=== PATIENT | male | born 1945 | race Caucasian/White ===

== ENCOUNTER 2018-05-21 09:08 | Day surgery (SDC) | payer MEDICARE ==
[~2018-05-21] VITALS: Ht 172.7 cm; Wt 94.9 kg
[~2018-05-21 09:08] MED LIST: Flomax0.4 MG PO; LORA.5 PO; OXYACE5T PO; PARO20 PO; PROM25 PO; Percocet 5-3251 EACH PO; TAMS.4ER PO; TRAM50 PO; Zofran Odt8 MG SL
== END 2018-05-21 12:26 | disposition home or self-care (01) ==
LOC: ORSCSDS 09:08
PROVIDERS: Internal Medicine Gastroenterology
PROC: 0DBH8ZX Excision of Cecum, Via Natural or Artificial Opening Endoscopic, Diagnostic (ICD-10-PCS; principal; 2018-05-21 10:30)
PROC: 0DBM8ZX Excision of Descending Colon, Via Natural or Artificial Opening Endoscopic, Diagnostic (ICD-10-PCS; principal; 2018-05-21 10:30)
PROC: 0DBN8ZX Excision of Sigmoid Colon, Via Natural or Artificial Opening Endoscopic, Diagnostic (ICD-10-PCS; principal; 2018-05-21 10:30)
PROC: 0DBK8ZX Excision of Ascending Colon, Via Natural or Artificial Opening Endoscopic, Diagnostic (ICD-10-PCS; principal; 2018-05-21 10:30)
DX: Z12.11 Encounter for screening for malignant neoplasm of colon (principal); D12.5 Benign neoplasm of sigmoid colon; D12.2 Benign neoplasm of ascending colon; D12.0 Benign neoplasm of cecum; D12.4 Benign neoplasm of descending colon; K57.30 Diverticulosis of large intestine without perforation or abscess without bleeding
CPT/HCPCS: 88305; J1980; J7120

== ENCOUNTER 2019-07-22 09:56 | Day surgery (SDC) | payer MEDICARE ==
[~2019-07-22] VITALS: Ht 172.7 cm; Wt 91.8 kg
[2019-07-22] MEDS ORDERED: PANT40 PO (10:29)
[2019-07-22] MEDS ORDERED: SUCR1 PO (10:29)
[2019-07-25 13:48] LABS: Performing Lab SYMBIODX; Test Name TISSUE BIOPSY
[2019-08-02 10:17] LABS: Result SEE PATHOTH RESULTS
== END 2019-07-22 12:03 | disposition home or self-care (01) ==
LOC: ORSCSDS 09:56
PROVIDERS: Internal Medicine Gastroenterology
PROC: 0DB68ZX Excision of Stomach, Via Natural or Artificial Opening Endoscopic, Diagnostic (ICD-10-PCS; principal; 2019-07-22 11:15)
PROC: 0DB58ZX Excision of Esophagus, Via Natural or Artificial Opening Endoscopic, Diagnostic (ICD-10-PCS; principal; 2019-07-22 11:15)
DX: R10.13 Epigastric pain (principal); C83.30 Diffuse large B-cell lymphoma, unspecified site; Z87.891 Personal history of nicotine dependence
CPT/HCPCS: 87081; 88305; 88341; 88342; 88365; J2704; J7120

== ENCOUNTER 2019-08-20 07:18 | Day surgery (SDC) | payer MEDICARE ==
[~2019-08-20] VITALS: Ht 172.7 cm; Wt 92.3 kg
[~2019-08-20 07:18] MED LIST changes: +PANT40 PO; +SUCR1 PO
--- NOTE | 2019-08-20 08:41 | NUR ---
Ambulatory in Day Surgery History, Chart, Medications and Allergies reviewed before start of procedure.Patient confirms NPO status and agrees with scheduled surgery. Patient reports completing Chlorhexadine shower X2 prior to admission to hospital.Surgical site prepped with 2% Chlorhexidine cloth wipe. Lungs clear T/O to Auscultation. Patient States Post-Procedure ride home has been arranged. GLASSES AND DENTURES REMOVED AND TAKEN TO PACU.
--- NOTE | 2019-08-20 10:20 | NUR ---
08/20/19 1020 Ritesh Carrillo all entries by [email or web address] were acutally entered by [email or web address].
--- NOTE | 2019-08-20 11:33 | NUR ---
CXR DONE. RAD TO CALL [facility] WITH RESULTS. PT PLAN TO GO TO CANCER CENTER AFTER RECOVERY.
--- NOTE | 2019-08-20 12:17 | NUR ---
Patient up to Ambulate independently. Gait steady. Discharge instructions reviewed with patient. Patient verbalizes understanding. Copy given to patient to take home. Patient States Post-Procedure ride to cancer center will be provided by his . Discharged via wheelchair to private car for ride home. all belonings returned to patient.
== END 2019-08-20 22:47 | disposition home or self-care (01) ==
LOC: ORSCMMR 07:18 → ORD 09:00 → ORSCMMR 22:47
PROVIDERS: Surgery
PROC: B543ZZA Ultrasonography of Right Jugular Veins, Guidance (ICD-10-PCS; principal; 2019-08-20 09:00)
PROC: 05HM33Z Insertion of Infusion Device into Right Internal Jugular Vein, Percutaneous Approach (ICD-10-PCS; principal; 2019-08-20 09:00)
DX: C85.10 Unspecified B-cell lymphoma, unspecified site (principal); Z87.891 Personal history of nicotine dependence
CPT/HCPCS: 77001; 93005; 93010; A9270-GY; C1788; J0690; J1100; J1642; J2250; J2370; J2405; J2704; J3010; J7120

== ENCOUNTER 2021-07-19 10:30 | Inpatient (IN) | payer MEDICARE ==
[~2021-07-19] VITALS: Ht 172.7 cm; Wt 96.9 kg
[2021-07-19] MEDS ORDERED: PRED20 PO (10:47)
[2021-07-19 11:17] LABS: BASOPHILS ABSOLUTE AUTO 0.01 K/mm3 (0.00-0.23); BASOPHILS PERCENT AUTO 0 % (0-2); EOSINOPHILS PERCENT AUTO 0 % (0-6); Hematocrit 46.1 % (37.0-53.0); Hemoglobin 16.1 g/dL (13.5-17.5); IMMATURE GRAN ABSOLUTE AUTO 0.03 K/mm3 (0.00-0.10); IMMATURE GRAN PERCENT AUTO 0 % (0-1); LYMPHOCYTES ABSOLUTE AUTO 1.52 K/mm3 (0.84-5.20); LYMPHOCYTES PERCENT AUTO 20 % (21-46); MONOCYTES ABSOLUTE AUTO 0.65 K/mm3 (0.16-1.47); MONOCYTES PERCENT AUTO 9 % (4-13); Mean Corpuscular HGB 32.8 pg (26.0-34.0); Mean Corpuscular HGB Conc 34.9 g/dL (31.5-36.5); Mean Corpuscular Volume 94 fL (80-100); Mean Platelet Volume 9.5 fL (9.1-12.4); NEUTROPHILS ABSOLUTE AUTO 5.28 K/mm3 (1.96-9.15); NEUTROPHILS PERCENT AUTO 71 % (41-73); Platelet Count 161 K/mm3 (150-400); RDW Coefficient Variation 13.2 % (11.7-14.2); RDW Standard Deviation 46.1 fL (35.1-46.3); Red Blood Cell Count 4.91 M/mm3 (4.30-5.90); White Blood Cell Count 7.49 K/mm3 (4.00-11.30)
[2021-07-19 11:35] LABS: Albumin/Globulin Ratio 0.7 (0.8-1.8); Bilirubin, Total 0.9 mg/dL (0.1-1.0); Bun/Creatinine Ratio 14.1 (12.0-20.0); Calcium, Blood 8.2 mg/dL (8.5-10.1); Creatinine, Blood 1.42 mg/dL (0.60-1.20); Globulin, Blood 4.2 g/dL (2.2-4.0); Total Protein, Blood 7.2 g/dL (6.4-8.2)
--- NOTE | 2021-07-20 04:07 | NUR ---
SHIFT SUMMARY A/OX4, PLEASANT AND COOPERATIVE WITH CARE. SUN'AQ. DENIES PAIN. CURRENTLY ON 4L VIA NC. VSS, NO ACUTE CHANGES AT THIS TIME. BED IN LOWEST POSITION WITH CALL LIGHT IN REACH. WILL CONTINUE TO MONITOR AND REPORT TO ONCOMING RN.
[2021-07-20 04:59] LABS: BASOPHILS PERCENT AUTO 0 % (0-2); EOSINOPHILS PERCENT AUTO 0 % (0-6); Hematocrit 40.5 % (37.0-53.0); IMMATURE GRAN ABSOLUTE AUTO 0.02 K/mm3 (0.00-0.10); IMMATURE GRAN PERCENT AUTO 1 % (0-1); LYMPHOCYTES PERCENT AUTO 20 % (21-46); MONOCYTES ABSOLUTE AUTO 0.41 K/mm3 (0.16-1.47); MONOCYTES PERCENT AUTO 10 % (4-13); Mean Corpuscular HGB 32.4 pg (26.0-34.0); Mean Corpuscular HGB Conc 34.6 g/dL (31.5-36.5); Mean Corpuscular Volume 94 fL (80-100); Mean Platelet Volume 9.6 fL (9.1-12.4); NEUTROPHILS ABSOLUTE AUTO 2.72 K/mm3 (1.96-9.15); NEUTROPHILS PERCENT AUTO 69 % (41-73); Platelet Count 143 K/mm3 (150-400); RDW Coefficient Variation 13.1 % (11.7-14.2); Red Blood Cell Count 4.32 M/mm3 (4.30-5.90); White Blood Cell Count 3.95 K/mm3 (4.00-11.30)
[2021-07-20 05:19] LABS: Anion Gap 5 mmol/L (6-16); Blood Urea Nitrogen 21 mg/dL (8-24); Bun/Creatinine Ratio 21.2 (12.0-20.0); CO2, Blood 24 mmol/L (21-32); Calcium, Blood 7.9 mg/dL (8.5-10.1); Chloride, Blood 112 mmol/L (98-108); Creatinine, Blood 0.99 mg/dL (0.60-1.20); Glomerular Filtration Rate >60 (60-); Glucose, Blood 182 mg/dL (70-99); Magnesium, Blood 1.9 mg/dL (1.6-2.4); Potassium, Blood 4.1 mmol/L (3.5-5.5); Sodium, Blood 141 mmol/L (136-145)
--- NOTE | 2021-07-20 17:48 | NUR ---
SHIFT SUMMARY PATIENT ALERT AND ORIENTED X4. PLEASANT AND COOPERATIVE WITH CARE. PATIENT IS ON CONTINUOUS POTASSIUM RUNNING AT 125ML/HR. PATIENT DENIES PAIN, NAUSEA, VOMITTING. PATIENT HAS BEEN HAVING DIARREA EPISODES DURING SHIFT. CALLED DR PIEROSN AND HAD A CDIFF SAMPLE SENT TO LAB/ AWAITING RESULTS. DR PIERSON PRESCRIBED MEDICATION FOR DIARREA. PATIENT IS CURRENTLY SATTING AT 4 LITERS NASAL CANNULA. VITAL SIGNS REVIEWED. NO ACUTE CHANGES DURING SHIFT. BED IS IN LOWEST AND LOCKED POSITION. CALL LIGHT IN REACH. WILL CONTINUE TO MONITOR UNTIL END OF SHIFT.
[2021-07-20 18:22] LABS: Adenovirus F 40/41 Not Detected (NOT DETECT); Astrovirus Not Detected (NOT DETECT); Campylobacter Sp Not Detected (NOT DETECT); Cryptosporidium Not Detected (NOT DETECT); Cyclospora Cayetanensis Not Detected (NOT DETECT); E. Coli O157 Not Detected (NOT DETECT); Entamoeba Histolytica Not Detected (NOT DETECT); Enteroaggregative E. coli-EAEC Not Detected (NOT DETECT); Enteropathogenic E. coli-EPEC Not Detected (NOT DETECT); Enterotoxigenic E. coli-ETEC Not Detected (NOT DETECT); Giardia Lamblia Not Detected (NOT DETECT); Norovirus GI/GII Not Detected (NOT DETECT); Plesiomonas Shigelloides Not Detected (NOT DETECT); Rotavirus A Not Detected (NOT DETECT); Salmonella Sp Not Detected (NOT DETECT); Sapovirus Not Detected (NOT DETECT); Shiga Toxin-prod E. coli-STEC Not Detected (NOT DETECT); Shigella/Enteroin E. coli-EIEC Not Detected (NOT DETECT); Vibrio Cholerae Not Detected (NOT DETECT); Vibrio Sp Not Detected (NOT DETECT); Yersinia Enterocolitica Not Detected (NOT DETECT)
--- NOTE | 2021-07-21 08:35 | NUR ---
SHIFT SUMMARY: AOX3, 1 ASSIST TO BSC. LS DIMINISHED T/O. VERY MOIST COUGH PRODUCTIVE WITH THICK SPUTUM, INCREASED O2 TO 6 LITERS DUE TO SATS BEING IN THE 88-89%. LUNG SOUNDS DIMINISHED T/O. NO PAIN NOTED. VS WNL, AFEBRILE. CDIFF NEGATIVE. IVF CONTINUE TO INFUSE WITH NO PROBLEMS. CALL LIGHT REMAINS IN REACH.
--- NOTE | 2021-07-21 19:28 | NUR ---
PT O2 NEEDS INCREASED THIS SHIFT TO 15L WITH OXEMIZER. NO C/O SOB OR CHEST PAIN. REMAINS ALERT AND ORIENTED X4. WARM BLANKETS PROVIDED FOR SHIVERS. STAFF WILL CONTINUE TO MONITOR.
--- NOTE | 2021-07-21 20:48 | NUR ---
ASSUMED CARE. ANXIOUS, FORGETFUL WITH STARTING OF CONFUSION. SATS AVERAGING 85-90% ON AIRVO 65L 95%02. STATING HE HAS TO "PEE" EVEN THOUGH HE HAS A CATHETER THAT IS PATENT WITH DARK YELLOW URINE. CONTINUES TO SAY THAT HES NEVER HAD ONE. THERES NO TUGGING OR PULLING NOTED. SHOWED HIM THE CATHETER TUBE WITH URINE IN IT. SPOKE OF "MESSING HIS PANTS", APPEARED VERY UPSET ABOUT THIS. CLEANED HIM UP A COUPLE OF TIMES DUE TO HIM COUGHING AND HAVING DIARRHEA. REPOSITIONED ON SIDE SATS STILL DROPPING TO LOW 80'S, GAVE HIM PRN LOMOTIL TO SLOW DOWN BM'S. HAD TO TALK HIM INTO SLOWING HIS RESPIRATIONS THAT ARE NOW 40'S. WOULD GET HIM TO CALM DOWN FOR ONLY SECONDS AT A TIME. WILL CALL MD FOR CHANGE IN ATIVAN ORDER AND COUGH MEDICATIONS.
--- NOTE | 2021-07-22 06:48 | NUR ---
SHIFT SUMMARY: LS TIGHT, DIMINISHED. TACHYPNEA AND DESATS WITH SLIGHT EXERTION. TAKES FULL 1-2 MINUTES RECCOVERY. THIS AM TOOK LONGER TO RECOVER, HAD TO PLACE NON-REBRETHER AND OXYMIZER ON AT SAME TIME RUNNING 30L TO GET HIM TO RECOVER. CURRENTLY ON 15L NON-REBREATHER HOLDING SATS AT 88-90%. COUOGH IS VERY MOIST. IVF INFUSING WELL, COULD BENIFIT FROM HAVING THEM DC'D. SLEPT ON RIGHT SIDE ALL NIGHT. STILL HAING LOOSE STOOLS. AT RISK FOR PLACEMENT ON AIRVO TODAY DO TO DECOMPENSATION. CALLS APPROPRIATLY.
--- NOTE | 2021-07-22 19:14 | NUR ---
SUMMARY- PT A/O X4. GEN WEAKNESS. OXYGEN DEMAND INCREASED THROUGH THE SHIFT FROM NRM AT 15L TO NRM WITH OXIMIZER 15 TO AIRVO MAXXED AT 60L/94%, SATS TOGGLE BETWEEN 82-91%, DECREASE WITH ANY ACTIVITY. EARLIER TODAY WAS ABLE TO GET OOB TO COMMODE X3 FOR LOOSE BM. USED URINAL AT THE SIDE BUT PT WOULD DECOMPONSATE WITH ACTIVITY SO BEGAN TO USE URINAL IN BED. EVENTUALLY CALLED DR PIERSON 1800 TOLD PT'S SATS HAVE BEEN STEADY 83-85%, RR36 RELATED TO ANXIETY. ORDER FOR HERNÁNDEZ PLACED AND ATIVAN FOR ANXIETY, MEDICATED WITH PARTIAL RELEIF OF ANXIETY. PT ASSISTED TO SIDE LYING AT TIMES BUT REFUSES PRONE. TOLERATED BREAKFAST AND LUNCH AND REFUSED DINNER. REPORT TO ANTOINE MORGAN.
--- NOTE | 2021-07-22 20:48 | NUR ---
ASSUMED CARE. ANXIOUS, FORGETFUL WITH STARTING OF CONFUSION. SATS AVERAGING 85-90% ON AIRVO 65L 95% O2. STATING HE HAS TO "PEE" EVEN THOUGH HE HAS A CATHETER THAT IS PATENT WITH DARK YELLOW URINE. CONTINUES TO SAY THAT HES NEVER HAD ONE. THERES NO TUGGING OR PULLING NOTED. SHOWED HIM THE CATHETER TUBE WITH URINE IN IT. SPOKE OF "MESSING HIS PANTS", APPEARED VERY UPSET ABOUT THIS. CLEANSED HIM UP A COUPLE OF TIMES DUE TO HIM COUGHING AND HAVING DIARRHEA. REPOSITIONED ON SIDE SATS STILL DROPPING TO LOW 80'S, GAVE HIM PRN LOMOTIL TO SLOW DOWN BM'S. HAD TO TALK HIM INTO SLOWING HIS RESPIRATIONS THAT ARE NOW 40'S. WOULD GET HIM TO CALM DOWN FOR ONLY SECONDS AT A TIME. WILL CALL MD FOR CHANGE IN ATIVAN ORDER AND COUGH MEDICATIONS.
--- NOTE | 2021-07-22 21:32 | NUR ---
CONTINUES TO DESAT, WILL NOT HOLD ABOVE 86%, AIRVO MAX. GOT ORDER FROM DR. NEELY FOR ATIVAN ANDD COUGH SYRUP. BOTH ADMINISTERED. REPOSITIONED BACK ON SIDE. CURRENTLY HOLDING T 88-90%.
--- NOTE | 2021-07-22 23:41 | NUR ---
INCREASE IN AGGITATION AND CONFUSION. CONTINUES TO DESAT TO LOW 80'S AT TIMES 70'S. VEERY RESTLESS. CONTINUES TO STATE HE HAS TO "PEE" DESPITE CATHETER. NOTED CATHETER WAS LEAKING. REMOVED CATHETER. HE CALMED DOWN FOR SHORT PERIODS BUT WAS RIGHT BACK UP. FOUND DEROBING ON SEVERAL OCCATIONS AND REMOVING AIRVO. HAD TO PLACE ON AIRVO AND NON-REBRETHER TO GET SATS UP TO AT LEAST 84%. NEW ORDER FOR ATIVAN GIVEN. NO CHANGE. REPLACED CATHETER DUE TO RESPIRTORY FAILURE. PLACED IN POSI VEST AND SOFT WRIST RESTRAINTS. STILL CONTINUED TO HAVE INCREASE IN AGGITATION, FIGHTING THE AIRVO AND NON-REBREATHER, PULLING AGAINST RESTRAINTS. STATING HE WAS CHOKING, COULD NOT BREATH. BIPAP PLACED BY RT, PATIENT SATS STILL REMAINING AT MID 80'S, ORDER FOR ICU TRANSFER. REPORT GIVEN TO ELPIDIO. TRANSFERRED AT 6321.
--- NOTE | 2021-07-23 00:30 | NUR ---
PT ARRIVES TO ROOM ICU 14 UNDER ICU STATUS TRANSFERRED FROM MEDICAL FLOOR SECONDARY TO ESCALATION IN AGITATION AND RESPIRATORY DISTRESS. PT HAS BIPAP IN PLACE AT THIS TIME. ATTEMPTS TO PULL AT LINES AND MASK. PT HAS SOFT RESTRAINTS IN PLACE FOR HIS SAFETY. PT'S RESPIRATORY RATE 50-60'S. DOES NOT REDIRECT. CALL MADE TO DR MAI FOR MEDICATIONS TO HELP PT CALM AND TO IMPROVE BIPAP COMPLIANCE. WILL REVIEW CHART AND PLAN OF CARE FOR THIS PT.
[2021-07-23 04:46] LABS: Hematocrit 41.3 % (37.0-53.0); Hemoglobin 14.2 g/dL (13.5-17.5); Mean Corpuscular HGB 31.9 pg (26.0-34.0); Mean Corpuscular HGB Conc 34.4 g/dL (31.5-36.5); Mean Corpuscular Volume 93 fL (80-100); Mean Platelet Volume 9.9 fL (9.1-12.4); Platelet Count 154 K/mm3 (150-400); RDW Standard Deviation 44.7 fL (35.1-46.3); Red Blood Cell Count 4.45 M/mm3 (4.30-5.90); White Blood Cell Count 11.17 K/mm3 (4.00-11.30)
[2021-07-23 05:11] LABS: Anion Gap 5 mmol/L (6-16); Blood Urea Nitrogen 17 mg/dL (8-24); Bun/Creatinine Ratio 22.9 (12.0-20.0); CO2, Blood 24 mmol/L (21-32); Calcium, Blood 7.5 mg/dL (8.5-10.1); Chloride, Blood 116 mmol/L (98-108); Creatinine, Blood 0.74 mg/dL (0.60-1.20); Glomerular Filtration Rate >60 (60-); Glucose, Blood 181 mg/dL (70-99); Potassium, Blood 3.9 mmol/L (3.5-5.5); Sodium, Blood 145 mmol/L (136-145)
--- NOTE | 2021-07-23 06:09 | NUR ---
AFTER PT RECEIVES ZYPREXA AND HALDOL PT WAS PLACED ON PRECEDEX DRIP. PT EVENTUALLY CALMED AND WAS ABLE TO REST WITH BIPAP MASK ON. HAVE TITRATED PRECEDEX DOWN TO 0.3 MCG'S/KG/HOUR. PT'S RESPIRATORY RATE REMAINS 15-25 BPM. NO DISTRESS AT THIS TIME. HERNÁNDEZ CATHETER HAS CONCENTRATED URINE TO BEDSIDE BAG. WILL CONTINUE TO MONITOR PT, AND WILL REPORT OFF TO ONCOMING RN.
--- NOTE | 2021-07-23 08:07 | NUR ---
RESTRAINTS AND ADAMARIS VEST IN PLACE, CALM, NO DISTRESS, NO SOB, PRECEDEX INFUSING, BIPAP ON 100% 11/08, REPOSITIONED, CATH CARE
--- NOTE | 2021-07-23 08:57 | NUR ---
dr eastman rounded, increased bipap setting, repositioned patient, bradycardia 38-54, 0838 precedex stopped, patient resting,
--- NOTE | 2021-07-23 10:03 | NUR ---
REPOSITIONED IN BED, PLACED A TEMPERATURE HERNÁNDEZ, BEAR HUGGER TO PATIENT, PATIENT NONCONSOLABLE, FIGHTING RESTRAINTS AND CARE
--- NOTE | 2021-07-23 10:14 | NUR ---
REPORTED PATIENT CARE TO DAUGHTER MICKI LUZ, SHE REPORTS PATIENT HAS HAD MATT CARDI FOR THREE YEARS DUE TO STOMACH CA, PATIENT HAS BEEN IN REMISSION FOR THREE YEARS
[2021-07-23 13:25] LABS: PCO2 Arterial 35.4 mmHg (35-45); PO2 Arterial 111 mmHg (80-100); pH Blood Arterial 7.45 (7.35-7.45)
--- NOTE | 2021-07-23 13:53 | NUR ---
PATEINT WOKE, REORIENTED, DENIED PAIN, EDUCATED ON THE NEED FOR RESTRAINTS, REVEIWED ABG RESULTS, WCTM
--- NOTE | 2021-07-23 17:23 | NUR ---
PATEINT SCREAMING FOR WATER, CHANGED TO NONREBREATHER AT 100%, TOOTHETE TO MOUTH, DESATED TO 85% ON NON REBREATHER, BIPAP AT FIO2 80%, 13/09
--- NOTE | 2021-07-23 17:25 | NUR ---
PATIENT SCREAMING FOR WATER, BIPAP TAKEN OFF, 100% NON REBREATHER, TOOTHEETT ,OISTENED MOUTH, DESATED TO 85%, BIPAP BACK ON 80% 13/09
--- NOTE | 2021-07-23 17:26 | NUR ---
TEMP 97.0, DECREASING BEAR HUGGER NOW
--- NOTE | 2021-07-23 17:39 | NUR ---
PATIENT VERY [place], CAN RESPOND APPRIATELY IF HE CAN HEAR, BECOMES NONCONSOLABLE AND REACHES FOR THE HERNÁNDEZ AND BIPAP, SWB AND VEST ON, MEDICATED WITH ZYPREXA AND ATIVAN, OFF BIPAP FOR 10 MINUTES ON 100% NONREBREATHER, MOISTEN TOOTHET TO MOUTH, DESATED TO 85%, RECOVERED EASILY ONCE BACK ON BIPAP, FIO2 80% 18/10, CORE TEMPERATURE NOW 97.1, BEAR HUGGER TO 38 DEGREES, HISTORY OF BRADYCARDI FROM STOMACH CA CHEMO, CA IN REMISSION FOR 3 YEARS
--- NOTE | 2021-07-23 19:56 | NUR ---
Assumed care. Report recieved from Barron MORGAN. Pt in bed with BiPap mask on, settings: 15/09, Fi02 80%. IV access in r/arm. Temp truong in place, draining odalis/yellow urine. Pt in bilateral soft wrist restraints and jose vest. Pt restless in bed at this time. No acute needs noted, will continue to monitor. See shift assessment for details.
[2021-07-24 05:32] LABS: BASOPHILS ABSOLUTE AUTO 0.01 K/mm3 (0.00-0.23); BASOPHILS PERCENT AUTO 0 % (0-2); EOSINOPHILS PERCENT AUTO 0 % (0-6); Hematocrit 42.7 % (37.0-53.0); Hemoglobin 14.8 g/dL (13.5-17.5); IMMATURE GRAN ABSOLUTE AUTO 0.06 K/mm3 (0.00-0.10); IMMATURE GRAN PERCENT AUTO 1 % (0-1); LYMPHOCYTES ABSOLUTE AUTO 0.52 K/mm3 (0.84-5.20); LYMPHOCYTES PERCENT AUTO 6 % (21-46); MONOCYTES ABSOLUTE AUTO 0.36 K/mm3 (0.16-1.47); MONOCYTES PERCENT AUTO 4 % (4-13); Mean Corpuscular HGB 32.2 pg (26.0-34.0); Mean Corpuscular HGB Conc 34.7 g/dL (31.5-36.5); Mean Corpuscular Volume 93 fL (80-100); Mean Platelet Volume 10.1 fL (9.1-12.4); NEUTROPHILS ABSOLUTE AUTO 7.92 K/mm3 (1.96-9.15); NEUTROPHILS PERCENT AUTO 89 % (41-73); Platelet Count 162 K/mm3 (150-400); RDW Coefficient Variation 13.2 % (11.7-14.2); RDW Standard Deviation 45.1 fL (35.1-46.3); Red Blood Cell Count 4.59 M/mm3 (4.30-5.90); White Blood Cell Count 8.87 K/mm3 (4.00-11.30)
[2021-07-24 05:55] LABS: PO2 Arterial 58.7 mmHg (80-100); pH Blood Arterial 7.48 (7.35-7.45)
[2021-07-24 06:06] LABS: Anion Gap 6 mmol/L (6-16); Blood Urea Nitrogen 22 mg/dL (8-24); Bun/Creatinine Ratio 29.5 (12.0-20.0); CO2, Blood 24 mmol/L (21-32); Calcium, Blood 7.3 mg/dL (8.5-10.1); Chloride, Blood 118 mmol/L (98-108); Creatinine, Blood 0.75 mg/dL (0.60-1.20); Glomerular Filtration Rate >60 (60-); Glucose, Blood 175 mg/dL (70-99); Magnesium, Blood 2.3 mg/dL (1.6-2.4); Phosphorus, Blood 2.2 mg/dL (2.5-4.9); Potassium, Blood 3.9 mmol/L (3.5-5.5); Sodium, Blood 148 mmol/L (136-145)
--- NOTE | 2021-07-24 06:48 | NUR ---
Shift summary. Pt continues on Bipap 13/09, 80% Fi02. Pt has powerglide in LILY, IV access LA. Pump settings: Precedex running at 0.2 mcg/kg/hr. Temp truong in place, draining odalis/yellow urine. Garima gallagher on pt for temp in mid 90's, current temp 96.8 and slowly increasing. See shift assessment for further details. Will report to oncoming rn.
--- NOTE | 2021-07-24 08:33 | NUR ---
CARE ASSUMED OF PT AT 0700. PT SLEEPING W BIPAP ON 20/10 FIO2 80%, PT'S RATE 30-50. SATS 95%. PRECEDEX AT 0.2MCG NO OTHER GTT'S RUNNING. PT SINUS MATT 50'S. BP MILD HYPOTENSION W MAPS >65. BEAR HUGGER ON FOR HYPOTHERMIS. TEMP IMPROVED AT 97.0, BEAR HUGGER TURNED DOWN. PUPILS 2/2MM SLUGGISH. PT DOES NOT AWAKEN TO EXAM. BILAT SOFT WRIST RESTRAINTS IN PLACE. LUMGS SOUNDS CLEAR TO UPPER LOBES, VERY DIMINISHED OTHERWISE, ALMOST ABSENT TO BASES. PT NPO, BT'S HYPOACTIVE, 120CC DARK URINE TO HERNÁNDEZ.
--- NOTE | 2021-07-24 17:50 | NUR ---
FIO2 65%, BIPAP SETTINGS REMAIN AT 18/10. RESP 20-30'S. SATS 96%. PT SLEPT THROUGH MOST OF THE DAY ON PRECEDEX AT 0.2MCG. PT AWOKE FOR BATH AND WAS INTERACTIVE, ASKING FOR WATER, AND ASISTING W TURNS; FOLLOWING DIRECTIONS. CLINIMIX AT 75CC/HR STARTED PT IS NPO. TEMP 96.6; BEAR HUGGER OFF. BP STABLE. PT REMAINS STABLE BRADYCARDIA 50'S.
--- NOTE | 2021-07-24 19:29 | NUR ---
Assumed care. Report recieved from Alexia MORGAN. Pt continues on Bipap, settings: 13/09, Fi02 65%. Pt has powerglide to LILY, IV access in L/forearm. Pump settings are as follows: Precedex running at 0.2 mcg/kg/hr, Clinimix running at 75 ml/hr. Sunshine catheter in place, draining clear/yellow urine. Bilateral calf SCDs in place. Pt resting quietly at this time, no acute needs noted. Will continue to monitor.
[2021-07-25 04:53] LABS: BASOPHILS ABSOLUTE AUTO 0.01 K/mm3 (0.00-0.23); BASOPHILS PERCENT AUTO 0 % (0-2); EOSINOPHILS PERCENT AUTO 0 % (0-6); Hemoglobin 16.1 g/dL (13.5-17.5); IMMATURE GRAN ABSOLUTE AUTO 0.05 K/mm3 (0.00-0.10); IMMATURE GRAN PERCENT AUTO 1 % (0-1); LYMPHOCYTES ABSOLUTE AUTO 0.46 K/mm3 (0.84-5.20); LYMPHOCYTES PERCENT AUTO 6 % (21-46); MONOCYTES ABSOLUTE AUTO 0.28 K/mm3 (0.16-1.47); MONOCYTES PERCENT AUTO 3 % (4-13); Mean Corpuscular HGB Conc 33.5 g/dL (31.5-36.5); Mean Corpuscular Volume 95 fL (80-100); Mean Platelet Volume 10.5 fL (9.1-12.4); NEUTROPHILS ABSOLUTE AUTO 7.46 K/mm3 (1.96-9.15); NEUTROPHILS PERCENT AUTO 90 % (41-73); Platelet Count 164 K/mm3 (150-400); RDW Coefficient Variation 13.3 % (11.7-14.2); RDW Standard Deviation 47.1 fL (35.1-46.3); Red Blood Cell Count 5.03 M/mm3 (4.30-5.90); White Blood Cell Count 8.26 K/mm3 (4.00-11.30)
[2021-07-25 05:13] LABS: Anion Gap 4 mmol/L (6-16); Blood Urea Nitrogen 28 mg/dL (8-24); Bun/Creatinine Ratio 38.1 (12.0-20.0); CO2, Blood 26 mmol/L (21-32); Calcium, Blood 7.7 mg/dL (8.5-10.1); Chloride, Blood 119 mmol/L (98-108); Creatinine, Blood 0.73 mg/dL (0.60-1.20); Glomerular Filtration Rate >60 (60-); Glucose, Blood 240 mg/dL (70-99); Magnesium, Blood 2.5 mg/dL (1.6-2.4); Phosphorus, Blood 2.1 mg/dL (2.5-4.9); Potassium, Blood 4.4 mmol/L (3.5-5.5); Sodium, Blood 149 mmol/L (136-145)
--- NOTE | 2021-07-25 06:20 | NUR ---
Shift summary. Pt rested quietly throughout shift. Bipap settings: 18/10, 60% Fi02. Precedex running at 0.2 mcg/kg/hr, clinimix running at 75 ml/hr. Temp truong in place, draining odalis/yellow urine. Bilateral calf SCDs in place. See shift assessment for details. Will continue to monitor and report off to oncoming RN.
--- NOTE | 2021-07-25 09:00 | NUR ---
ASSUMED CARE ASSESSMENT COMPLETED FOR PRIMARY RN LIOR. PT IS AWAKE, EXTREMELY YUHAAVIATAM, BUT ANSWERS QUESTIONS APPROPRIATELY AND FOLLOWS COMMANDS. PRECEDEX PLACED ON STANDBY AND BILAT SOFT WRIST RESTRAINGS REMOVED. PT CURRENTLY ON BIPAP, 14/09 FIO2 60%. RR LOW-MID 20S WITH MINIMAL WOB. LUNGS DIM T/O BUT CAN HEAR SOME MOVEMENT BUL'S. F/C TO GRAVITY, BT HYPOACTIVE, NPO STATUS. UPDATE TO PRIMARY RN LIOR ON ASSESSMENT FINDINGS.
--- NOTE | 2021-07-25 11:24 | NUR ---
PT HAS BEEN DOING WELL OFF OF PRECEDEX AND OUT OF RESTRAINTS. PT AWAKE AND COOPERATIVE, SLEEPING MOST OF THE TIME. PT COOPERATIVE W BATH, SATS DID DROP INTO LOW 70'S W EXERTION. FIO2 PLACED AT 100% FOR BATH ONLY. FIO2 BACK TO 60%, SATS 99%. PT HAS BREAK DOWN OF SKIN TO BRIDGE OF NOSE, GEL PAD PLACED. RT NOTIFIED, WILL SEE IF FULL FACE MASK IS AVAILABLE. INSULIN ON MED SS STARTED. D5 AT 50 STARTED FOR ELEVATED NA. PT WILL REQUIRE 2ND IV, WILL ATTEMPT TO PLACE A 2ND POWERGLIDE. FAMILY UPDATED BY ROTARY SOIL STABILIZER
--- NOTE | 2021-07-25 14:12 | NUR ---
POWERGLIDE ST PLACED TO TIFFANIE W/O DIFF. DRAWS BACK BLOOD NICELY. PT'S BIPAP MASK REMOVED AND HIGH TRANG 02 AT 15L PLACED FOR SHORT BREAK AND ORAL CARE. PT GIVEN SMALL SIP OF WATER. PT ANALIA WELL. SATS REMAINED >90% BUT PT FELT SHORT OF BREATH AFTER ~4MIN. MASK REPLACED. SATS INITIALLY DROPPED TO LOW 80'S BUT CAME BACK UP AGAIN QUICKLY.
--- NOTE | 2021-07-25 17:56 | NUR ---
Case conferenced with pt's Nurse and nursing education consultant, reviewed EMR for complete update. Pt is maintaining adequate O2 sats with bipap use at this time. He remains in ICU but sl improved today. Pal [facility] to remain available to speak with family if indicated. New Pal [facility] referral received today from staff.
--- NOTE | 2021-07-25 20:26 | NUR ---
PT DID WELL OVERALL TODAY. PRECEDEX GTT TITRATED OFF EARLY THIS AM, RESTRAINTS REMOVED. PT SLEPT MOST OF THE DAY, WHEN AWAKE HE WAS ALERT AND APPROPRIATE, OX3. PT WOULD WATCH TV FROM TIME TO TIME. PT REQUESTED DRINKS OF WATER AND ANALIA SM SIPS WELL. PT PLACED ON HIGHFLO AT 15L FOR BREAKS, SATS >90% FOR FIRST 4-5MIN THEN WOULD START TO FALL. AFTER 4-5MIN PT WOULD ALSO START TO FEEL SOB. PT WORE FACE MASK TODAY OTHER MASK HAD CAUSED SKIN BREAK DOWN TO BRIDGE OF NOSE. NON-BLANCHING DARK PURPLE SKIN TO BRIDGE OF NOSE. VSS T/O SHIFT. POWERGLIDE STARTED TO TIFFANIE. ORAL CARE PROVIDED Q2HRS W EACH TURN
--- NOTE | 2021-07-25 21:25 | NUR ---
Assumed care. Report recieved by Alexia MORGAN. Pt sitting up in bed, watching television at this time. Bipap on, settings: 11/09, 60% Fi02. Patient tolerating well. Powerglide in LILY and TIFFANIE, IV pump settings: NS at 10 ml/hr, 5% dextrose running at 50 ml/hr, Clinimix running at 75 ml/hr. Temp truong in place, draining odalis/yellow urine. No acute needs noted at this time. Will continue to monitor.
--- NOTE | 2021-07-25 22:15 | NUR ---
Spoke with daughter Caron to give her an update. She did not have any concerns at this time. She did ask to get another update in the am.
--- NOTE | 2021-07-26 01:33 | NUR ---
Report given to Olegario MORGAN. Pt transferred to PCU.
[2021-07-26 05:07] LABS: BASOPHILS ABSOLUTE AUTO 0.02 K/mm3 (0.00-0.23); BASOPHILS PERCENT AUTO 0 % (0-2); EOSINOPHILS PERCENT AUTO 0 % (0-6); Hematocrit 45.4 % (37.0-53.0); Hemoglobin 15.6 g/dL (13.5-17.5); IMMATURE GRAN ABSOLUTE AUTO 0.09 K/mm3 (0.00-0.10); IMMATURE GRAN PERCENT AUTO 1 % (0-1); LYMPHOCYTES ABSOLUTE AUTO 0.62 K/mm3 (0.84-5.20); LYMPHOCYTES PERCENT AUTO 6 % (21-46); MONOCYTES PERCENT AUTO 5 % (4-13); Mean Corpuscular HGB 32.5 pg (26.0-34.0); Mean Corpuscular HGB Conc 34.4 g/dL (31.5-36.5); Mean Corpuscular Volume 95 fL (80-100); Mean Platelet Volume 10.4 fL (9.1-12.4); NEUTROPHILS ABSOLUTE AUTO 9.86 K/mm3 (1.96-9.15); NEUTROPHILS PERCENT AUTO 88 % (41-73); Platelet Count 176 K/mm3 (150-400); RDW Coefficient Variation 13.2 % (11.7-14.2); RDW Standard Deviation 45.6 fL (35.1-46.3); White Blood Cell Count 11.19 K/mm3 (4.00-11.30)
[2021-07-26 05:27] LABS: Anion Gap 4 mmol/L (6-16); Blood Urea Nitrogen 26 mg/dL (8-24); Bun/Creatinine Ratio 32.8 (12.0-20.0); CO2, Blood 29 mmol/L (21-32); Calcium, Blood 7.1 mg/dL (8.5-10.1); Chloride, Blood 115 mmol/L (98-108); Creatinine, Blood 0.79 mg/dL (0.60-1.20); Glomerular Filtration Rate >60 (60-); Glucose, Blood 187 mg/dL (70-99); Sodium, Blood 148 mmol/L (136-145)
--- NOTE | 2021-07-26 06:08 | NUR ---
SHIFT SUMMARY ASSUMED CARE OF PT AT 0200. HE IS AN ICU TRANSFER. PT IS A/OX4, BUT HARD TO UNDERSTAND DUE TO LACK OF DENTURES. HEART SOUNDS REGULAR, TELE SHOWS SINUS. LUNG SOUNDS ARE DIMINISHED. PT IS ON THE BIPAP, PT WILL DESATURATE TO THE 70S IF OFF TOO LONG FOR ORAL CARE OR A SIP OF WATER. PT HAS A HERNÁNDEZ DRAINING WITH GRAVITY. PT HAS A SMALL BRUISE ON THE BRIDGE OF HIS NOSE FROM MASK IN ICU. CALL LIGHT IN REACH, BED IN LOWEST POSTION.
--- NOTE | 2021-07-26 17:29 | NUR ---
Shift Summary Pt remains on BIPAP 11/09 WITH 15 LPM, SPO2 > 85%. Pt frequently has coughing spells and destats to 82%. Cough medication given this morning with good effect, see emar. UPper lobes clear and crackles in bases. Aware of location and following directions, slow to respond. Moves all extrems. BP STABLE. NSR. No other changes t/o shift. Sunshine remains in place.
[2021-07-27 04:28] LABS: Anion Gap 4 mmol/L (6-16); Blood Urea Nitrogen 24 mg/dL (8-24); Bun/Creatinine Ratio 31.3 (12.0-20.0); CO2, Blood 27 mmol/L (21-32); Calcium, Blood 6.7 mg/dL (8.5-10.1); Chloride, Blood 112 mmol/L (98-108); Creatinine, Blood 0.77 mg/dL (0.60-1.20); Glomerular Filtration Rate >60 (60-); Glucose, Blood 202 mg/dL (70-99); Phosphorus, Blood 2.2 mg/dL (2.5-4.9); Potassium, Blood 4.4 mmol/L (3.5-5.5); Sodium, Blood 143 mmol/L (136-145)
--- NOTE | 2021-07-27 05:07 | NUR ---
A-FIB & LOW CALCIUM PATIENT CONVERTED TO A-FIB AT 0420 WITH CONTROLLED RATE 60'S-100'S; NO HX OF A-FIB. MORNING LABS REVEALED LOW CALCIUM OF 6.7 DECREASED FROM 7.[address] TO [address]. MAI; ORDER OBTAINED FOR CALCIUM GLUCONATE 1AMP IV.
--- NOTE | 2021-07-27 06:14 | NUR ---
SHIFT SUMMARY PATIENT REMAINED ON CPAP 14 30LPM; SPO2 ABOVE 90%. SLEPT THROUGHOUT SHIFT. NO MAJOR CHANGES EXCEPT FOR NEW ONSET A-FIB WITH RATE 60'S-100'S AND LOW CALCIUM. SEE NOTE ON A-FIN & LOW CALCIUM. CLINAMIX AND D5W STILL INFUSING. WILL CONTINUE TO MONITOR UNTIL REPORT GIVEN TO ONCOMING RN.
--- NOTE | 2021-07-27 11:14 | NUR ---
Echocardiogram completed.
--- NOTE | 2021-07-27 19:56 | NUR ---
SHIFT SUMMARY PT A/O X3-4 AND COOPERATIVE OF CARE. PT REMAINED IN AFIB @ A RATE RANGING 89-103 THROUGHOUT SHIFT. O2 SATS >90% FOR MAJORITY OF SHIFT ON CPAP. PT HAD NON-PRODUCTIVE COUGHS THROUGHOUT SHIFT.N HERNÁNDEZ IN PLACE DRAINING TO GRAVITY.
[2021-07-28 05:47] LABS: Magnesium, Blood 2.2 mg/dL (1.6-2.4); Phosphorus, Blood 2.3 mg/dL (2.5-4.9)
--- NOTE | 2021-07-28 07:24 | NUR ---
SHIFT SUMMARY PATIENT SWITCHED FROM CPAP TO V60 W/KIM MASK DUE TO OXYGEN DESATS WITH ORAL CARE. SPO2 MAINTAINED LOW TO MID 90'S ON CPAP 10 100% FIO2. ATTEMPTED MULTIPLE TYPES OF DRESSINGS ON NOSE PRESSURE INJURY WITHOUT SUCCESS. MULTIPLE LARGE CASTS REMOVED FROM MOUTH WITH ORAL CARE. PATIENT A&O X 3; PATIENT BELIEVES THE YEAR IS 2000, BUT OTHERWISE ORIENTED. NO OTHER MAJOR CHANGES DURING SHIFT.
[2021-07-28 14:54] LABS: Albumin, Blood 1.8 g/dL (3.4-5.0); Anion Gap 6 mmol/L (6-16); Blood Urea Nitrogen 28 mg/dL (8-24); Bun/Creatinine Ratio 35.2 (12.0-20.0); CO2, Blood 27 mmol/L (21-32); Calcium, Blood 7.5 mg/dL (8.5-10.1); Chloride, Blood 107 mmol/L (98-108); Glomerular Filtration Rate >60 (60-); Glucose, Blood 244 mg/dL (70-99); Magnesium, Blood 2.1 mg/dL (1.6-2.4); Phosphorus, Blood 2.7 mg/dL (2.5-4.9); Potassium, Blood 5.2 mmol/L (3.5-5.5); Sodium, Blood 140 mmol/L (136-145)
--- NOTE | 2021-07-28 16:11 | NUR ---
Conversation facilitated with the principal about his code status preference. Abdoulaye indicates that he presently desires the administration of stabilizing treatment in the event of decompensation, but is open to considering forgoing life sustaining procedures if or when they become medically non-beneficial. He did express that he wanted to involve his family in that level of decision making. Subsequently, I conducted a telephone call to his home and had an open and lengthy conversation with his daughters and , about being prepared to address those concerns if they developed. I explained that he is currently stable on non-invasive airway support, but that his complex medical history and covid infection, would not likely make him a good candidate for ventilatory support, if additional deconditioning occurred and such treatment was warranted. They verbalized understanding, but were not ready to encourage any alterations to his code status. Abdoulaye does possess testamentary capacity, so ultimately this remains his decision for the moment. Praying for his full recovery. I will follow up with him again tomorrow. Thank you for this consult. Cayden Aldridge ThD
--- NOTE | 2021-07-28 17:28 | NUR ---
SHIFT SUMMARY PT A/O X3 AND COOPERATIVE OF CARE. PT WAS ABLE TO SWITCH TO AIRVO FROM 1245 TO 1253 TO EAT A PUDDING; PT TOLERATED WELL. NO ASPIRATION, NO COUGHS, AND O2 SATS WERE >90%. PT REQUESTED TO GO BACK TO THE CPAP STATING, "I DO NOT LIKE HOW MUCH AIR IS BLOWING INTO MY NOSE." PT SINUS RHYTHM WITH RATES RANGING 7O-90'S T/O SHIFT. BP STABLE T/O SHIFT.
[2021-07-29 04:11] LABS: BASOPHILS ABSOLUTE AUTO 0.02 K/mm3 (0.00-0.23); BASOPHILS PERCENT AUTO 0 % (0-2); EOSINOPHILS PERCENT AUTO 0 % (0-6); Hematocrit 41.9 % (37.0-53.0); Hemoglobin 14.7 g/dL (13.5-17.5); IMMATURE GRAN ABSOLUTE AUTO 0.06 K/mm3 (0.00-0.10); IMMATURE GRAN PERCENT AUTO 1 % (0-1); LYMPHOCYTES ABSOLUTE AUTO 0.32 K/mm3 (0.84-5.20); LYMPHOCYTES PERCENT AUTO 3 % (21-46); MONOCYTES ABSOLUTE AUTO 0.34 K/mm3 (0.16-1.47); MONOCYTES PERCENT AUTO 3 % (4-13); Mean Corpuscular HGB 32.7 pg (26.0-34.0); Mean Corpuscular HGB Conc 35.1 g/dL (31.5-36.5); Mean Corpuscular Volume 93 fL (80-100); Mean Platelet Volume 11.3 fL (9.1-12.4); NEUTROPHILS ABSOLUTE AUTO 9.77 K/mm3 (1.96-9.15); NEUTROPHILS PERCENT AUTO 93 % (41-73); Platelet Count 119 K/mm3 (150-400); RDW Coefficient Variation 12.8 % (11.7-14.2); RDW Standard Deviation 43.7 fL (35.1-46.3); White Blood Cell Count 10.51 K/mm3 (4.00-11.30)
[2021-07-29 04:28] LABS: Anion Gap 4 mmol/L (6-16); Blood Urea Nitrogen 27 mg/dL (8-24); Bun/Creatinine Ratio 39.8 (12.0-20.0); CO2, Blood 28 mmol/L (21-32); Calcium, Blood 7.7 mg/dL (8.5-10.1); Chloride, Blood 108 mmol/L (98-108); Creatinine, Blood 0.68 mg/dL (0.60-1.20); Glomerular Filtration Rate >60 (60-); Glucose, Blood 163 mg/dL (70-99); Phosphorus, Blood 2.5 mg/dL (2.5-4.9); Potassium, Blood 5.1 mmol/L (3.5-5.5); Sodium, Blood 140 mmol/L (136-145)
--- NOTE | 2021-07-29 07:16 | NUR ---
AFIB RVR / CALL TO MD CALL TO MD DUNCAN TO REPORT PT HR 130's-160's. MD W/ ORDER FOR 1X 5MG IV LOPRESSOR PUSH & CONTINUE TO MONITOR.
--- NOTE | 2021-07-29 07:42 | NUR ---
SHIFT SUMMARY PT A+OX3. STRUGGLING WITH TOLERATING CPAP. DOES NOT LIKE THE AIRFLOW INTO NOSE FROM AIRVO AND DESATS WHILE WE ATTEMPTED AIRVO FORA CPAP BREAK. PT HAS OCCASIONAL DRY COUGH. PT HAD EPISODE OF AFIB, WITH HR PROGRESSING INTO 140'S-150'S. PROVIDER CALLED AND IV LOPRESSOR ADMINISTERED. BP STABLE. INCREASED CONFUSION AND ANXIETY TOWARDS END OF SHIFT. PT STARTED TO PULL OFF TELE STICKERS AND CPAP. PT LEFT IN BED RESTING WITH CALL ALARM AT SIDE. WILL CONTINUE TO MONITOR
--- NOTE | 2021-07-29 08:00 | NUR ---
pt is in bed a bit agitated, seems confused at times, but is very difficult to communicate as he has a full bipap face mask, on 100%, lungs are course, t/o, no cough noted, hrirr, tele in place running afib per monitor, rates is climbing, was given a metoprolol push at 0728, helped some, npo for now, no edema noted, ppp+1, cap refill <3sec, vs stable, afebrile, iv site is power glides to b/l upper arms, both flush well, btx4, abd soft nontender, attends in place for incont, skin is a bit pale, maew, cali, call light in reach.
[2021-07-29 08:28] LABS: Albumin, Blood 1.8 g/dL (3.4-5.0); Anion Gap 5 mmol/L (6-16); Blood Urea Nitrogen 27 mg/dL (8-24); Bun/Creatinine Ratio 39.4 (12.0-20.0); CO2, Blood 27 mmol/L (21-32); Calcium, Blood 7.6 mg/dL (8.5-10.1); Chloride, Blood 108 mmol/L (98-108); Creatinine, Blood 0.69 mg/dL (0.60-1.20); Glomerular Filtration Rate >60 (60-); Glucose, Blood 163 mg/dL (70-99); Phosphorus, Blood 2.5 mg/dL (2.5-4.9); Potassium, Blood 5.1 mmol/L (3.5-5.5); Sodium, Blood 140 mmol/L (136-145)
[2021-07-29 11:33] LABS: Albumin, Blood 1.8 g/dL (3.4-5.0); Albumin/Globulin Ratio 0.4 (0.8-1.8); Bilirubin, Direct 0.4 mg/dL (0.0-0.3); Bilirubin, Indirect 0.5 mg/dL (0.1-0.7); Bilirubin, Total 0.9 mg/dL (0.1-1.0); Total Protein, Blood 5.8 g/dL (6.4-8.2)
--- NOTE | 2021-07-29 11:53 | NUR ---
cardizem gtt was started for high heart rate, pt has attempted to climb out of bed several times, and pulled tube off of cpap mask, was able to redirect him, and get him back in bed, pallative care working with him and family, has been repositioned a number of times this am. call light in reach.
--- NOTE | 2021-07-29 12:17 | NUR ---
Requested to visit with pt for advanced care planning assistance. Spoke with Dr. Denson, Dr. Conn, Cayden Aldridge, pt's bedside RN, Esme Victoria, pt's daughters and via speaker phone and Abdoulaye himself. Cayden Aldridge is requesting a SOFA score for pt. Spoke with Dr. Denson who states that Dr. Conn had recently assessed Abdoulaye this morning and would like to defer to Dr. Conn. Spoke with Dr. Conn who states that Abdoulaye has not made any progress the past few days. He is currently bipap dependent with a RR around 60. He is in a-fib with RVR, rate in the 160s and a cardizem gtt has been ordered. Informed Dr. Conn that Cayden Aldridge is requesting a SOFA score. Dr. Conn stated that she would work on calculating a SOFA score. Called pt's family, spoke with dtrBobbyi and his other dtr and via speaker phone. Gave them an update and answered questions. At this time they stated that they talked to Abdoulaye last night and that he expressed that he wanted everything done. Updated them on Dr. Conn's assessment of no improvement, bipap dependence and a-fib with RVR. Eliza stated "We want everything done." Went to Abdoulaye's room and spoke with him. He remained on the BIPAP face mask during our conversation. This commercial loan underwriter was able to understand him when spoke with the face mask on. He is awake, he answers questions of orientation appropriately. He asked about his family and appears to be able to track our conversation. Nursing reports that he has periods of confusion where earlier today he was talking about his parents. He stated that his granddaughter had visited earlier and stated "There she is" when a staff member entered his room during our converstation. Explained his current condition, currently supportive treatments with BIPAP, cardizem gtt, tele monitoring, medications. Discussed code status ventilatory support. At this time he requests to remain a full code and continue to receive full care. Updated bedside nurse, Esme Victoria and Cayden Aldridge of conversations with pt and family. Will await SOFA score from Dr. Conn. PC to remain available for continued advanced care planning and symptom management. KPS score of 20% PPS score of 30%
[2021-07-29 12:28] LABS: PCO2 Arterial 31 mmHg (35-45); PO2 Arterial 64 mmHg (80-100); pH Blood Arterial 7.47 (7.35-7.45)
--- NOTE | 2021-07-29 13:25 | NUR ---
Update: sequential organ failure assessment ordered to ascertain the [facility] mortality index and probable clinical trajectory. If the results warrant a conversation with the family / principle about pursuing a less aggressive care strategy, I will reapproach them. They are presently committed to a heroic plan with a full complement of service, including mechanical intubation if the patient decompensates. Thank you for this consult. Cayden Aldridge ThD
--- NOTE | 2021-07-29 15:41 | NUR ---
Requested by PCU bedside and charge to come assess pt. Abdoulaye has been removing his bipap mask this afternoon and telling staff that he is done and doesn't want to wear the mask any longer. Met with Abdoulaye at his bedside again this afternoon. Explained to Abdoulaye that he appears to be having periods of confusion and periods of alertness. He voices feelings of anxiety and fearfulness of dying. He expresses a desire to continue to fight and live. Explained that there are medicines that could be given to help him be more comfortable and less anxious with wearing the mask. Abdoulaye verbalized that he would like to try some medication to help him relax. Updated Esme Victoria on conversation with pt. Called his dtr, Eliza, and updated her that a precedex gtt will be started to help Abdoulaye tolerate the bipap mask. Eliza was appreciative of the call. PC to continue to follow.
--- NOTE | 2021-07-29 18:31 | NUR ---
pt has been agitated throughout the day, he has been repositioned, every two hrs, he pulls his bipap mask off at times and sats drop to the 70's, heart rate is better, did start him on precidex, and stopped the cardizem gtt, b/p soft, in the 90's, pt is more relaxed, but resp rate in the high 40's to 50's, call light in reach.
--- NOTE | 2021-07-29 20:04 | NUR ---
CARE ASSUMPTION PT ICU STATUS. A&O W/ EPISODES OF CONFUSION. CONFIRMED FULL CODE STATUS W/ PT W/ PT CONFIRMING YES FULL CODE THOUGH PT STATING "WELL ONLY FOR A LITTLE BIT" FOR CPR. EXPLAINED TO PT IF FULL CODE FULL CPR/MEDICATIONS PROVIDED. PT AGAIN CONFIRMING FULL CODE. PT SPO2 90-95% ON V60 CPAP: 10 cmH2O, FIO2 90%. FIO2 TEMPORARILY INCREASED TO 100% FOR Q2H REPOSITIONING IN BED. MONITOR SHOWS AFIB, HR 70's-100. CARDIZEM GTT & PRECEDEX GTT CURRENTLY ON STANDBY. CLINIMIX GTT INFUSING. PT W/ SIGNIFICANT SKIN BREAKDOWN ACROSS NOSE. COCCCYX RED. HERNÁNDEZ CATH PATENT & DRAINING. WILL CONTINUE TO MONITOR & PROVIDE CARE.
[2021-07-30 04:29] LABS: BASOPHILS ABSOLUTE AUTO 0.02 K/mm3 (0.00-0.23); BASOPHILS PERCENT AUTO 0 % (0-2); EOSINOPHILS PERCENT AUTO 0 % (0-6); Hematocrit 41.4 % (37.0-53.0); Hemoglobin 14.4 g/dL (13.5-17.5); IMMATURE GRAN ABSOLUTE AUTO 0.07 K/mm3 (0.00-0.10); IMMATURE GRAN PERCENT AUTO 1 % (0-1); LYMPHOCYTES ABSOLUTE AUTO 0.27 K/mm3 (0.84-5.20); LYMPHOCYTES PERCENT AUTO 2 % (21-46); MONOCYTES ABSOLUTE AUTO 0.36 K/mm3 (0.16-1.47); MONOCYTES PERCENT AUTO 2 % (4-13); Mean Corpuscular HGB 32.5 pg (26.0-34.0); Mean Corpuscular HGB Conc 34.8 g/dL (31.5-36.5); Mean Corpuscular Volume 94 fL (80-100); Mean Platelet Volume 11.4 fL (9.1-12.4); NEUTROPHILS ABSOLUTE AUTO 14.48 K/mm3 (1.96-9.15); NEUTROPHILS PERCENT AUTO 95 % (41-73); Platelet Count 129 K/mm3 (150-400); RDW Coefficient Variation 12.9 % (11.7-14.2); RDW Standard Deviation 44.4 fL (35.1-46.3); Red Blood Cell Count 4.43 M/mm3 (4.30-5.90)
[2021-07-30 04:49] LABS: Anion Gap 4 mmol/L (6-16); Blood Urea Nitrogen 34 mg/dL (8-24); Bun/Creatinine Ratio 44.9 (12.0-20.0); CO2, Blood 28 mmol/L (21-32); Calcium, Blood 7.3 mg/dL (8.5-10.1); Chloride, Blood 107 mmol/L (98-108); Creatinine, Blood 0.76 mg/dL (0.60-1.20); Glomerular Filtration Rate >60 (60-); Glucose, Blood 223 mg/dL (70-99); Potassium, Blood 4.6 mmol/L (3.5-5.5); Sodium, Blood 139 mmol/L (136-145)
--- NOTE | 2021-07-30 06:42 | NUR ---
SHIFT SUMMARY PT ICU STATUS, A&O W/ SOME CONFUSION, CALM & COOPERATIVE T/O SHIFT. MONITOR SHOWS AFIB, HR 70's-110. SPO2 88-95% ON V60 CPAP: 10 cmH2O, FIO2 90%, INCREASED TO 95% THIS SHIFT. PT REQUIRING INCREASE TO 100% FIO2 TO TOLERATE REPOSITIONING. RR 30's-50's T/O SHIFT. CARDIZEM GTT & PRECEDEX GTT ON STANDBY, UNUSED THIS SHIFT. CLINIMIX GTT INFUSING PER EMAR. HERNÁNDEZ CATH PATENT & DRAINING. WILL CONTINUE TO MONITOR & PROVIDE CARE UNTIL REPORT OFF TO DAY SHIFT RN.
--- NOTE | 2021-07-30 08:00 | NUR ---
pt resting quietly in bed, appears relaxed, states he's doing ok, continues on cpap, lungs are dim course t/o, resp even and unlabored at this time, no cough noted, hirr, tele in place running afib per monitor, see strip, no edema noted, ppp+1, cap refill <3sec, vs stable, afebrile, iv site is clear and patent, btx4, abd flat soft nontender, voids without diff, skin c/w/d, maew, cali, call light in reach.
--- NOTE | 2021-07-30 18:29 | NUR ---
pt was changed to comfort care, family came in to see him. he denies pain or any needs. call light in reach.
--- NOTE | 2021-07-30 20:31 | NUR ---
CARE ASSUMPTION PT RESTING IN BED DENYING ANY PAIN EXCEPT FOR SORENESS IN LEGS. PT'S O2 SATS >92% ON 100% FIO2. PT BOOSTED IN BED AND REPORTS BEING COMFORTABLE AND REQUESTED THAT THE LIGHTS BE TURNED OFF SO HE CAN SLEEP.
--- NOTE | 2021-07-31 05:37 | NUR ---
CLUBHOUSE MANAGER SUMMARY PT IS AXO X 2-3 THIS SHIFT W MILD CONFUSION ABOUT THE DAY AND TIME. PTMAINTAINING O2 SATS >90% ON CPAP 10 W 95% FIO2. PT DENYING ANY PAIN THIS SHIFT WXCEPT FOR MILD SORENESS IN HIS LEGS. PTTOLERATING REPOSITIONING WELL W NO DESATS. WILL REPORT TO ONCOMING RN.
--- NOTE | 2021-07-31 13:06 | NUR ---
PHYSICIAN NOTIFIED PHYSICIAN NOTIFIED OF PT HAVING INCREASE IN ANXIETY. HITTING AT STAFF. ATTEMPTING TO CLIMB OUT OF BED. ORDERS TO HAVE INCREASE IN AT[place]AN AT 1-2 MG Q 2 HRS. INFORMED PHYSICIAN THAT I GAVE PT 2 MG Q 2 HRS D/T PT AGGITATION.
--- NOTE | 2021-07-31 15:19 | NUR ---
UPDATE FAMILY AT BEDSIDE DURING SHIFT. FAMILY AGGITATED UPON ARRIVAL D/T NOT FEELING THAT COMFORT CARE WAS FULLY EXPLAINED TO THEM LAST NIGHT UPON THE DECISION FOR THE PATIENT TO MOVE ONTO COMFORT CARE. PALLIATIVE CARE INVOLVED AND FAMILY FELT THOUGH MISCOMMUNICATIONS HAD HAPPENED BETWEEN FAMILY MEMBERS. FAMILY NO LONGER AGGITATED AT THIS TIME. FAMILY AT BEDSIDE WITH THIS RN AND PALLIATIVE CARE RN. PT MEDICATED FOR ANXIETY, AIR HUNGER AND PAIN. SEE EMAR. PT RESTING NOW WITH FAMILY. WILL CONT TO MONITOR.
--- NOTE | 2021-07-31 15:49 | NUR ---
TIME OF 1540 FAMILY AT BEDSIDE. THIS RN CALLED TIME OF . FAMILY PROVIDED WITH COMFORT. FINAL DISCHARGE BEGAN.
--- NOTE | 2021-07-31 16:54 | NUR ---
FINAL DISHCARGE NOTE SENIOR PHYSICAL THERAPIST, NURSING MANAGER DIVERSITY AND PHYSICIAN NOTIFIED OF PT'S TIME OF . ORGAN DONOR LINE NOTIFIED. PT NOT A CANDIDATE. ONCE FAMILY LEFT, FAMILIES PREFERRED HOME NOTIFIED. PT BROUGHT TO HOME WITH HOME EMPLOYEE, SEE CHART FOR NAME, WITH NO BELONGINGS. FAMILY HAS BELONGINGS. FINAL DISHCARGE COMPLETE.
--- NOTE | 2021-07-31 17:26 | NUR ---
Met with family earlier today for end of life care. Pt was placed on Comfort Care last night, and today family came in to see him and be with him when bipap mask removed. Pt was given comfort medications and family remainined at the bedside until pt took his last breath. He passed peacefully and comfortly.
== END 2021-07-31 16:33 | DRG 177 ==
LOC: ER 10:30 → ICUW 14:13 → MEDS 14:13 → ERHOLD 14:13 → EDBEDREQ 15:31 → MEDS 18:03 → ICUW 07-22 23:41 → PCU 07-26 00:53
PROVIDERS: Family Medicine; Internal Medicine; Internal Medicine Critical Care Medicine; Nurse Practitioner Acute Care; Student in an Organized Health Care Education/Training Program; ADMIT Family Medicine
PROC: 3E0333Z Introduction of Anti-inflammatory into Peripheral Vein, Percutaneous Approach (ICD-10-PCS; principal; 2021-07-19)
PROC: 8E0ZXY6 Isolation (ICD-10-PCS; 2021-07-19)
PROC: XW033E5 Introduction of Remdesivir Anti-infective into Peripheral Vein, Percutaneous Approach, New Technology Group 5 (ICD-10-PCS; 2021-07-23)
PROC: 5A09557 Assistance with Respiratory Ventilation, Greater than 96 Consecutive Hours, Continuous Positive Airway Pressure (ICD-10-PCS; 2021-07-24)
DX: U07.1 COVID-19 (principal); J96.01 Acute respiratory failure with hypoxia; J12.82 Pneumonia due to coronavirus disease 2019; N17.9 Acute kidney failure, unspecified; E87.0 Hyperosmolality and hypernatremia; Z66 Do not resuscitate; Z51.5 Encounter for palliative care; E87.5 Hyperkalemia; E87.6 Hypokalemia; E83.39 Other disorders of phosphorus metabolism; I48.91 Unspecified atrial fibrillation; R73.9 Hyperglycemia, unspecified; E66.9 Obesity, unspecified; Z85.72 Personal history of non-Hodgkin lymphomas; Z92.21 Personal history of antineoplastic chemotherapy; F32.9 Major depressive disorder, single episode, unspecified; Z90.49 Acquired absence of other specified parts of digestive tract; Z98.890 Other specified postprocedural states; Z79.899 Other long term (current) drug therapy; Z87.442 Personal history of urinary calculi; Z68.32 Body mass index [BMI] 32.0-32.9, adult; E86.0 Dehydration; Z78.1 Physical restraint status
CPT/HCPCS: 0097U; 36415; 36600; 51702; 71045; 80048; 80053; 80069; 80076; 82803; 82947; 83735; 83880; 84100; 84443; 84484; 85025; 85027; 93005; 93010; 93306; 94003; 94660; 94762; 96374; 99285-25; A9270; C1751; J0610; J1100; J1630; J1650; J1815; J2060; J2270; J3480; J7030; J7050; J7070